=== PATIENT | male | born 1985 | race Caucasian/White ===

== ENCOUNTER 2017-11-22 03:38 | Emergency (ER) | payer MEDICAID ==
[~2017-11-22] VITALS: Ht 165.1 cm; Wt 65.8 kg
[2017-11-22 03:49] VITALS: BP 144/75
[2017-11-22] MEDS ORDERED: CEFTRIAXONE 1 G VIAL ONE (04:29)
[2017-11-22] MEDS ORDERED: VANCOMYCIN 1 GM VIAL ONE (04:29)
[2017-11-22] MEDS ORDERED: HYDROCODONE/APAP 5/325MG 1 EACH TABLET ONE (04:29)
[2017-11-22] MEDS ORDERED: CEFTRIAXONE 1GM BAG (ER ONLY) 50 ML IV ONE (04:30)
[2017-11-22] MEDS ORDERED: VANCOMYCIN 1 GM in IV D5W 250 ML IV ONE (04:30)
[2017-11-22] MEDS ORDERED: IV NS 0.9% 1,000 ML BAG IV ONE (04:30)
[2017-11-22] MEDS ORDERED: HYDROCODONE/APAP 5/325MG 1 EACH TABLET PO ONE (04:30)
--- NOTE | 2017-11-22 04:40 | NUR ---
[facility] CALLED FOR TRANSFER REQUEST. PER NETTA NO BEDS AVAILABLE.
--- NOTE | 2017-11-22 04:57 | NUR ---
Patient does not wish to proceed with medical care recommended by Dr. Ortega. Patient given information related to possible complications, up to and including , which could occur as a result of leaving the hospital at this time. Patient verbalizes understanding of risks involved due to leaving against medical advice. Patient has signed AMA form. vss. schmitt noted.
== END 2017-11-22 04:59 | disposition left against medical advice (07) ==
LOC: ER 03:44
DX: L03.114 Cellulitis of left upper limb (principal)
CPT/HCPCS: 73130; 99284; A4606; Z7610; J0696; J3370; J7030